=== PATIENT | male | born 1950 | race Caucasian/White ===

== ENCOUNTER → 2017-11-02 | Outpatient (CLI) | payer MEDICARE ==
--- NOTE | 2017-11-02 08:09 | US ---
EXAMINATION TYPE: US duplex aorta DATE OF EXAM: 11/02/2017 COMPARISON: NONE CLINICAL HISTORY: X13.6 Screening for cardiovascular disorders. EXAM MEASUREMENTS: Abdominal Aorta: Proximal: 2.3 x 2.3 Mid: 1.7 x 1.5 Distal: 1.7 x 1.3 Bifurcation: obscured by gas apears wnl IMPRESSION: No evidence for abdominal aortic aneurysm at this time.
== END | disposition home or self-care (01) ==
LOC: RADUSWWP 06:53
PROVIDERS: ATTEND Family Medicine
DX: Z13.6 Encounter for screening for cardiovascular disorders (principal)
CPT/HCPCS: 93979

== ENCOUNTER → 2018-12-15 | Outpatient (CLI) | payer MEDICARE ==
--- NOTE | 2018-12-15 14:30 | ECHOF ---
Referral Reason:I45.10 unspecified right bundle branch block MEASUREMENTS -------- HEIGHT: 182.9 cm WEIGHT: 90.7 kg BP: IVSd: 1.2 cm (0.6 - 1.1) LVIDd: 3.9 cm (3.9 - 5.3) LVPWd: 1.2 cm (0.6 - 1.1) IVSs: 1.6 cm LVIDs: 2.1 cm LVPWs: 1.6 cm RVIDd: 1.6 cm (< 3.3) LAESV Index (A-L): 27.99 ml/m Ao Diam: 3.5 cm (2.0 - 3.7) LA Diam: 3.9 cm (2.7 - 3.8) AV Cusp: 2.2 cm (1.5 - 2.6) EPSS: 0.7 cm MV E Wei: 0.64 m/s MV DecT: 244 ms MV A Wei: 0.76 m/s MV E/A Ratio: 0.84 RAP: 5.00 mmHg RVSP: 29.94 mmHg MV EF SLOPE: 183.96 mm/s (70 - 150) MV EXCURSION: 1.93 cm (> 18.000) FINDINGS -------- Sinus rhythm. This was a technically good study. The left ventricular size is normal. There is mild concentric left ventricular hypertrophy. Overa ll left ventricular systolic function is normal with, an EF between 55 - 60 %. The diastolic fillin g pattern is normal for the age of the patient. The right ventricle is normal in size. The left atrial size is normal. Left atrium is normal size by volume. The right atrial size is normal. Interatrial and interventricular septum intact. The aortic valve is trileaflet and appears structurally normal. The mitral valve is normal. There is trace mitral regurgitation. Moderate tricuspid regurgitation present. Right ventricular systolic pressure is normal at < 35 mmH g. There is no pulmonic regurgitation present. The aortic root size is normal. The inferior vena cava was not well visualized. There is no pericardial effusion. CONCLUSIONS -------- 1. Sinus rhythm. 2. This was a technically good study. 3. The left ventricular size is normal. 4. There is mild concentric left ventricular hypertrophy. 5. Overall left ventricular systolic function is normal with, an EF between 55 - 60 %. 6. The diastolic filling pattern is normal for the age of the patient. 7. The right ventricle is normal in size. 8. The left atrial size is normal. 9. Left atrium is normal size by volume. 10. The right atrial size is normal. 11. Interatrial and interventricular septum intact. 12. The aortic valve is trileaflet and appears structurally normal. 13. The mitral valve is normal. 14. There is trace mitral regurgitation. 15. Moderate tricuspid regurgitation present. 16. Right ventricular systolic pressure is normal at < 35 mmHg. 17. There is no pulmonic regurgitation present. 18. The aortic root size is normal. 19. The inferior vena cava was not well visualized. 20. There is no pericardial effusion. PIER MASTER: RON Hernandez
== END | disposition home or self-care (01) ==
LOC: RADECHMAIN 12:36
PROVIDERS: ATTEND Family Medicine
DX: I51.7 Cardiomegaly (principal); I45.10 Unspecified right bundle-branch block
CPT/HCPCS: 93306

== ENCOUNTER → 2020-06-16 | Outpatient (CLI) | payer MEDICARE ==
--- NOTE | 2020-06-16 13:01 | MR ---
EXAMINATION TYPE: MR shoulder LT wo con DATE OF EXAM: 06/16/2020 COMPARISON: Outside radiographs 05/20/2020 HISTORY: 69-year-old male Left shoulder pain x 7 years TECHNIQUE: Multiplanar, multisequence imaging of the left shoulder is performed without contrast. FINDINGS: Diffuse heterogeneity of the subscapularis, supraspinatus, and infraspinatus tendons. Scattered intra substance changes present. No high-grade partial or full-thickness tear. No atrophy of the rotator cuff musculature. Trace fluid within the subacromial/subdeltoid bursa. There may be a small interstitial tear of the intracapsular portion of the long head biceps tendon at the level of the biceps anchor. The extracapsular portion shows mild to moderate tenosynovial fluid and remains appropriately situated along the bicipital groove. Mild to moderate degenerative change at the acromioclavicular joint. Small joint effusion. No signifi cant mass effect onto the underlying myotendinous junction of the supraspinatus. There is fairly moderate to severe degenerative change at the glenohumeral joint with significant car tilage loss and bulky marginal spurring. Mild bony remodeling of the bony glenoid. Small joint effusi on. Diffusely degenerative and torn glenoid labrum. No Hill-Sachs deformity or os acromiale. Patchy red marrow is present and can be seen in the setting of anemia, smoking, chronic disease. No s uspicious bone marrow replacement. IMPRESSION: 1. Diffuse rotator cuff tendinosis. Scattered intrasubstance change is present. No high-grade partial or full-thickness rotator cuff tear. No muscle atrophy. 2. Moderate to severe glenohumeral joint OA. Mild bony remodeling of the glenoid and bulky marginal s purring. Scattered high-grade areas of cartilage loss. 3. Degenerative and torn glenoid labrum. Small interstitial tear extends into the intracapsular porti on of the long head biceps tendon from the biceps anchor. Mild to moderate long head biceps tenosynov itis. 4. Mild to moderate AC joint OA.
== END | disposition home or self-care (01) ==
LOC: RADMRIMAIN 10:58
PROVIDERS: ATTEND Orthopaedic Surgery
DX: M19.012 Primary osteoarthritis, left shoulder (principal); S43.432A Superior glenoid labrum lesion of left shoulder, initial encounter; S46.112A Strain of muscle, fascia and tendon of long head of biceps, left arm, initial encounter